=== PATIENT | female | born 1995 | race African-American/Black ===

== ENCOUNTER 2019-09-13 04:51 | Emergency (ER) | payer OTHER, SELFPAY ==
[2019-09-13 04:55] VITALS: BP 118/93; PULSE 97; RESP 20; TEMP 37.2; O2SAT 100
--- NOTE | 2019-09-13 06:37 | ED.GENADULT ---
HPI - General Adult General Chief complaint: Unspecified Stated complaint: iron deficiency? Time Seen by Provider: 09/13/19 06:05 History of Present Illness HPI narrative: She awoke from sleep early this morning feeling SOB, fatigued, heart racing, and tingling in her fingers. Her symptoms have since resolved. she drank an energy drink last night before bed which is out of the ordinary for her. She had a similar episode 2 days ago. She was concerned that she is concerned that she may be anemic because she likes to eat ice. She denies any recent illness, stressors. Related Data Home Medications Medication Instructions Recorded Confirmed No Home Medications 09/13/19 Allergies Allergy/AdvReac Type Severity Reaction Status Date / Time No Known Allergies Allergy Unverified 01/06/16 17:25 Review of Systems Review of Systems: All systems reviewed & are unremarkable except as noted in HPI and below Constitutional: Constitutional: Reports fatigue, Denies fever(s) and Reports weakness Eyes: Eyes: Denies change in vision ENT: Denies sore throat Cardiovascular: Cardiovascular: Denies chest pain and Reports rapid heart rate Respiratory: Respiratory: Denies cough, Reports dyspnea and Denies wheezing Gastrointestinal: Gastrointestinal: Denies abdominal pain and Denies nausea Genitourinary: Genitourinary: Denies dysuria Neurologic: Denies dizziness, Denies syncope, Reports numbness and Reports weakness Endocrine: Endocrine: Denies polydipsia and Denies polyuria Hematologic/Lymphatic: Hematologic/Lymphatic: Denies easy bleeding and Denies easy bruising [facility] Social History Social History (Updated 09/13/19 @ 06:46 by Juan Barnett MD) Smoking status: Never smoker Exam Const: General: no acute distress and alert Orientation/consciousness: patient oriented x3 HENMT: Head: normal to inspection Mouth: Yes dry mucous membranes Neck: Neck: normal visual inspection and no lymphadenopathy Resp: Effort & Inspection: normal respiratory effort Auscultation: clear to auscultation bilaterally, no rales, no rhonchi and no wheezes Cardio: Jugular venous distension: no JVD Rate: regular rate Rhythm: regular rhythm Heart sounds: no murmurs GI: Inspection: non-distended GI Palp: Yes Soft to palpation and No Tenderness to palpation present (GI) Skin: General skin exam: normal color Neuro: General: patient oriented x3, moves all extremities and no focal motor deficits Speech: normal speech Extrem: General: no edema Psych: Appearance: well kempt Affect: Anxious affect present Course Vital Signs Vital signs: Vital Signs Temperature 37.2 C 09/13/19 04:55 Pulse Rate 97 09/13/19 04:55 Respiratory Rate 20 09/13/19 04:55 Blood Pressure 118/93 H 09/13/19 04:55 Pulse Oximetry 100 09/13/19 04:55 Temperature 37.2 C 09/13/19 04:55 Pulse Rate 97 09/13/19 04:55 Respiratory Rate 20 09/13/19 04:55 Blood Pressure 118/93 H 09/13/19 04:55 Pulse Oximetry 100 09/13/19 04:55 Medical Decision Making MDM Narrative Medical decision making narrative: Presentation most consistent with anxiety. Will get labs to r/o anemia. She may also be mildly dehydrated. She is a good candidate for oral hydration. Medical Records Medical records reviewed: Yes I reviewed the patient's medical records. Vital Signs Vital Signs: Vital Signs Temperature 37.2 C 09/13/19 04:55 Pulse Rate 97 09/13/19 04:55 Respiratory Rate 20 09/13/19 04:55 Blood Pressure 118/93 H 09/13/19 04:55 Pulse Oximetry 100 09/13/19 04:55 Temperature 37.2 C 09/13/19 04:55 Pulse Rate 97 09/13/19 04:55 Respiratory Rate 20 09/13/19 04:55 Blood Pressure 118/93 H 09/13/19 04:55 Pulse Oximetry 100 09/13/19 04:55 Lab Data Lab results reviewed: Yes I reviewed the patient's lab results. Result diagrams: 09/13/19 06:29 09/13/19 06:29 Labs: Lab Results 09/13/1908/27
[2019-09-13 06:47] LABS: Basophils Percent Auto 0.5 % (0.2-1.2); Eosinophils Absolute Auto 0.1 K/mm3 (0-0.3); Eosinophils Percent Auto 1.4 % (0-4.4); Hematocrit 33.4 % (37.0-47.0); Hemoglobin 10.4 g/dL (12.0-15.0); Immature Granulocyte Absolute 0.02 K/mm3 (0.00-0.031); Immature Granulocyte Percent A 0.3 % (0-0.5); Lymphocytes Absolute Auto 2.76 K/mm3 (0.9-3.2); Lymphocytes Percent Auto 42.3 % (18.3-44.2); Mean Corpuscular HGB Conc 31.1 g/dl (32-36); Mean Corpuscular Hemoglobin 25.3 pg (26-34); Mean Corpuscular Volume 81.3 fl (80-100); Mean Platelet Volume 11.3 fl (7.4-10.4); Monocytes Absolute Auto 0.6 K/mm3 (0.1-0.6); Monocytes Percent Auto 9.2 % (2.6-8.5); Neutrophils Percent Auto 46.3 % (45.5-73.1); Platelet Count Result 279 k/mm3 (150-375); Red Blood Count 4.11 M/mm3 (4.2-5.4); Red Cell Distribution Width 15.3 % (11.5-14.5); White Blood Count 6.5 K/mm3 (4.5-10.0)
[2019-09-13 06:49] LABS: Blood Urea Nitrogen 12 mg/dL (7-17); Calcium 9.4 mg/dL (8.4-10.2); Carbon Dioxide 23 mmol/L (22-30); Chloride 106 mmol/L (98-107); Estimated CRCL calculation 98 ml/min; Estimated Glomerular Filt Rate > 60; Glucose 90 mg/dL (65-105); Potassium 3.3 mmol/L (3.4-5.0); Sodium 138 mmol/L (137-145)
== END 2019-09-13 06:27 | disposition home or self-care (01) ==
PROVIDERS: Emergency Provider Emergency Medicine
DX: F41.0 Panic disorder [episodic paroxysmal anxiety] (principal)
CPT/HCPCS: 36415; 80048; 81025; 85025; 99283

== ENCOUNTER 2021-02-14 22:39 | Emergency (ER) | payer OTHER, SELFPAY ==
--- NOTE | ~2021-02-14 | CT_ITS ---
EXAMINATION: CT abdomen pelvis w con DATE: 02/15/2021 01:47 INDICATION: Right lower abdominal pain TECHNIQUE: Computed tomography (CT) of the abdomen and pelvis was performed with 100 cc Omnipaque 350 intravenous contrast. The dose-length product was 214.75 mGy-cm. Automated exposure control and iter ative reconstruction technique were employed. COMPARISON: None. FINDINGS: Lung bases are unremarkable. Heart size normal. No significant pleural or pericardial effus ion. Gallbladder is present. The liver, spleen pancreas, adrenal glands and kidneys are unremarkable. No hydronephrosis. Gallbladder is contracted. Nonobstructive bowel gas pattern. Trace free fluid in the pelvis. No free air. No acute osseous abnormality. Bladder is underdistended for evaluation. Mild dextroscoliosis. IMPRESSION: 1. No acute abdominal abnormality. Reviewed, dictated and finalized at location A.
[2021-02-14 22:41] VITALS: BP 108/71; PULSE 89; RESP 16; TEMP 36.5; O2SAT 100
[2021-02-14 23:13] LABS: Add Urine Microscopic? YES; Appearance Urine Cloudy (Clear); Bacteria Urine Trace /hpf; Bilirubin Urine Negative (Negative); Blood Urine Negative (Negative); Color Urine Yellow (Yellow); Glucose Urine UA Negative (Negative); Ketones Urine Negative (Negative); Leukocyte Esterase Ur 3+ LEU/UL (Negative); Mucus Urine Rare /lpf; Nitrate Urine Negative (Negative); Protein Urine Negative (Negative); RBC Urine 0-2 /hpf (0-2); Specific Grav Ur 1.017 (1.001-1.035); Squamous Epithelial Cell Urine Many /hpf (Few)
[2021-02-14 23:50] VITALS: BP 107/75; PULSE 75; RESP 16; O2SAT 100
--- NOTE | 2021-02-15 00:11 | ED.FEMALEGU ---
HPI - Female Genitourinary General Chief complaint: Urogenital-Female <Marilyn Gottlieb MD - Last Filed: 02/16/21 07:02> Stated complaint: possible UTI <Marilyn Gottlieb MD - Last Filed: 02/16/21 07:02> Time Seen by Provider: 02/14/21 23:46 <Marilyn Gottlieb MD - Last Filed: 02/16/21 07:02> Source: patient <Marilyn Gottlieb MD - Last Filed: 02/16/21 07:02> Mode of arrival: ambulatory <Marilyn Gottlieb MD - Last Filed: 02/16/21 07:02> Limitations: no limitations <Marilyn Gottlieb MD - Last Filed: 02/16/21 07:02> History of Present Illness HPI Narrative: This is a 25 year old female who presents for evaluation of lower abdominal pain and lower back pain. She states 2 weeks ago she went to an urgent care for evaluation of lower abdominal pain and vaginal discharge. She was diagnosed with a UTI And she was discharged on antibiotics. She denies having pelvic exam or vaginal swabs taken. She reports her symptoms have not improved so she came to ER. She describes her lower abdominal pain as menstrual cramps and she had similar pain with ovarian cyst. She reports normal has pain resolves after 2 days. She denies nausea, vomiting or fever. She had some pain with urination. She has taken tylenol for her pain. Pain 310. <Marilyn Gottlieb MD - Last Filed: 02/16/21 07:02> Related Data Allergies/Adverse reactions: Allergies Allergy/AdvReac Type Severity Reaction Status Date / Time doxycycline Allergy Swelling Verified 02/14/21 22:45 of Lip/Tongue/Throat <Marilyn Gottlieb MD - Last Filed: 02/16/21 07:02> Review of Systems Review of Systems: All systems reviewed & are unremarkable except as noted in HPI and below <Marilyn Gottlieb MD - Last Filed: 02/16/21 07:02> PMFSH Past Medical History Medical History: Medical History (Updated 02/16/21 @ 00:00 by Background Damacy) Ovarian cyst <Marilyn Gottlieb MD - Last Filed: 02/16/21 07:02> Surgical History Surgical History: Surgical History (Updated 02/15/21 @ 00:15 by Marilyn Gottlieb MD) No pertinent past surgical history <Marilyn Gottlieb MD - Last Filed: 02/16/21 07:02> Social History Social History: Social History (Updated 09/13/19 @ 06:46 by Juan Barnett MD) Smoking status: Never smoker <Marilyn Gottlieb MD - Last Filed: 02/16/21 07:02> Exam Const: General: no acute distress and alert <Marilyn Gottlieb MD - Last Filed: 02/16/21 07:02> Orientation/consciousness: patient oriented x3 <Marilyn Gottlieb MD - Last Filed: 02/16/21 07:02> Eyes: EOM: EOMs intact bilaterally <Marilyn Gottlieb MD - Last Filed: 02/16/21 07:02> Resp: Effort & Inspection: normal respiratory effort and no retractions <Marilyn Gottlieb MD - Last Filed: 02/16/21 07:02> Auscultation: clear to auscultation bilaterally <Marilyn Gottlieb MD - Last Filed: 02/16/21 07:02> Cardio: Rate: regular rate <Marilyn Gottlieb MD - Last Filed: 02/16/21 07:02> Rhythm: regular rhythm <Marilyn Gottlieb MD - Last Filed: 02/16/21 07:02> Heart sounds: no murmurs <Marilyn Gottlieb MD - Last Filed: 02/16/21 07:02> GI: GI Palp: Yes Soft to palpation, Yes Tenderness to palpation present (GI) (bilateral lower quadrant and suprapubic, pain worse in right lower ), No Guarding due to palpation present (GI) and No Rigid due to palpation <Marilyn Gottlieb MD - Last Filed: 02/16/21 07:02> Auscultation: normal bowel sounds <Marilyn Gottlieb MD - Last Filed: 02/16/21 07:02> : General: Yes no CVA tenderness <Marilyn Gottlieb MD - Last Filed: 02/16/21 07:02> Speculum Exam - Vagina: abnormal vaginal discharge yellow <Marilyn Gottlieb MD - Last Filed: 02/16/21 07:02> Speculum Exam - Cervix: Cervical os closed <Marilyn Gottlieb MD - Last Filed: 02/16/21 07:02> Bimanual exam- vagina & uterus: cervical motion tenderness <Marilyn Gottlieb MD - Last Filed: 02/16/21 07:02> Skin: General
[2021-02-15 00:25] LABS: Basophils Percent Auto 0.2 % (0.2-1.2); Eosinophils Absolute Auto 0.1 K/mm3 (0-0.3); Eosinophils Percent Auto 1.8 % (0-4.4); Hematocrit 39.1 % (37.0-47.0); Hemoglobin 12.7 g/dL (12.0-15.0); Immature Granulocyte Absolute 0.01 K/mm3 (0.00-0.031); Immature Granulocyte Percent A 0.2 % (0-0.5); Lymphocytes Absolute Auto 3.14 K/mm3 (0.9-3.2); Lymphocytes Percent Auto 47.5 % (18.3-44.2); Mean Corpuscular HGB Conc 32.5 g/dl (32-36); Mean Corpuscular Hemoglobin 29.9 pg (26-34); Mean Platelet Volume 10.9 fl (7.4-10.4); Monocytes Absolute Auto 0.6 K/mm3 (0.1-0.6); Monocytes Percent Auto 8.8 % (2.6-8.5); Neutrophils Absolute Auto 2.8 K/mm3 (1.3-6.7); Neutrophils Percent Auto 41.5 % (45.5-73.1); Platelet Count Result 224 k/mm3 (150-375); Red Blood Count 4.25 M/mm3 (4.2-5.4); Red Cell Distribution Width 13.7 % (11.5-14.5); White Blood Count 6.6 K/mm3 (4.5-10.0)
[2021-02-15 00:35] LABS: Alanine Aminotransferase 12 U/L (4-35); Albumin Level 4.7 g/dL (3.5-5.1); Alkaline Phosphatase 119 U/L (38-126); Anion Gap 10 mmol/L (8-16); Aspartate Amino Transferase 24 U/L (14-36); Bilirubin,Total 0.4 mg/dL (0.2-1.3); Blood Urea Nitrogen 7 mg/dL (7-17); Calcium 9.9 mg/dL (8.4-10.2); Carbon Dioxide 25 mmol/L (22-30); Chloride 100 mmol/L (98-107); Estimated CRCL calculation 117 ml/min; Estimated Glomerular Filt Rate > 60; Glucose 88 mg/dL (65-110); Potassium 3.9 mmol/L (3.4-5.0); Sodium 135 mmol/L (137-145)
[2021-02-15] MEDS: KETOROLAC 30 MG/ML VIAL (*BKC) IV PUSH (01:02)
[2021-02-15] MEDS: cefTRIAXone 1 GM VIAL 0.5 GM IM (01:03)
[2021-02-15 01:10] VITALS: BP 108/72; PULSE 76; RESP 16; O2SAT 100
[2021-02-15] MEDS: LIDO 2%/EPINEPHRINE 1:100,000 20 ML VIAL (01:14)
[2021-02-15 02:28] VITALS: BP 116/82; PULSE 77; RESP 16; O2SAT 98
[2021-02-15 03:28] VITALS: BP 105/73; PULSE 81; RESP 15; O2SAT 100
[2021-02-15] MEDS: AZITHROMYCIN 250 MG TABLET 1000 MG PO (03:29)
== END 2021-02-15 03:46 | disposition home or self-care (01) ==
PROVIDERS: General Practice; Emergency Provider Emergency Medicine
DX: N73.0 Acute parametritis and pelvic cellulitis (principal); N39.0 Urinary tract infection, site not specified
CPT/HCPCS: 36415; 74177; 80053; 81001; 81025; 85025; 87070; 87086; 87491; 87591; 87808; 96372; 96374; 99284; A9270; J0696; J1885; Q9967

== ENCOUNTER 2021-03-09 00:26 | Emergency (ER) | payer OTHER, SELFPAY ==
[2021-03-09 00:32] VITALS: BP 122/75; PULSE 75; RESP 18; TEMP 36.3; O2SAT 100
[2021-03-09 00:43] VITALS: BP 119/86; PULSE 94; RESP 14; O2SAT 100
[2021-03-09 01:23] LABS: Add Urine Microscopic? YES; Appearance Urine Cloudy (Clear); Bacteria Urine Trace /hpf; Bilirubin Urine Negative (Negative); Blood Urine Negative (Negative); Color Urine Yellow (Yellow); Glucose Urine UA Negative (Negative); Ketones Urine Negative (Negative); Leukocyte Esterase Ur 1+ LEU/UL (Negative); Nitrate Urine Negative (Negative); Protein Urine Negative (Negative); RBC Urine 0-2 /hpf (0-2); Specific Grav Ur 1.012 (1.001-1.035); Squamous Epithelial Cell Urine Many /hpf (Few); Urobilinogen Urine Negative mg/dL (<2.0)
--- NOTE | 2021-03-09 01:28 | ED.GENADULT ---
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 Patient was seen in the emergency department about 2 weeks ago and treated for pelvic inflammatory disease. The patient has history of allergy to doxycycline and was treated with 2 doses of azithromycin and a dose of ceftriaxone and an antibiotic for her UTI. Patient reports that she started her menses and reports that her symptoms worsened. Related Data Allergies Allergy/AdvReac Type Severity Reaction Status Date / Time doxycycline Allergy Swelling Verified 03/09/21 00:35 of Lip/Tongue/Throat Review of Systems Review of Systems: A 10 system review of systems was completed on the patient and is negative except for what is stated in the HPI. Nursing and ancillary documentation was reviewed. PMFSH Past Medical History Medical History Ovarian cyst Surgical History Surgical History No pertinent past surgical history Social History Social History Smoking status: Never smoker Exam Narrative: GENERAL: Well-appearing, well-nourished, and in no acute distress. HEAD: Normocephalic, atraumatic. EYES: PERRLA and EOMI. ENT: Nares clear, no rhinorrhea or epistaxis. Mucous membranes moist. NECK: Supple. CHEST: Clear to auscultation. No respiratory distress. HEART: Regular rate and rhythm. No murmur heard. Normal peripheral pulses. ABDOMEN: Soft, nontender, nondistended, normal active bowel sounds. EXTREMITIES: Normal range of motion. No edema. SKIN: Warm, dry, no rash. NEURO: No focal deficits. Alert and oriented x3. PSYCH: Normal mood and affect. Course Vital Signs Vital signs: Vital Signs Temperature 36.3 C L 03/09/21 00:32 Pulse Rate 75 03/09/21 00:32 Respiratory Rate 18 03/09/21 00:32 Blood Pressure 122/75 03/09/21 00:32 Pulse Oximetry 100 03/09/21 00:32 Temperature 36.3 C L 03/09/21 00:32 Pulse Rate 94 03/09/21 00:43 Respiratory Rate 14 03/09/21 00:43 Blood Pressure 119/86 03/09/21 00:43 Pulse Oximetry 100 03/09/21 00:43 Medical Decision Making Vital Signs Vital Signs: Vital Signs Temperature 36.3 C L 03/09/21 00:32 Pulse Rate 75 03/09/21 00:32 Respiratory Rate 18 03/09/21 00:32 Blood Pressure 122/75 03/09/21 00:32 Pulse Oximetry 100 03/09/21 00:32 Temperature 36.3 C L 03/09/21 00:32 Pulse Rate 94 03/09/21 00:43 Respiratory Rate 14 03/09/21 00:43 Blood Pressure 119/86 03/09/21 00:43 Pulse Oximetry 100 03/09/21 00:43 Lab Data Labs: Lab Results 03/09/21 03/09/21 Range/Units 01:05 01:05 Urine Color Yellow (Yellow) Urine Appearance Cloudy H (Clear) Urine pH 6.0 (5.0-9.0) Ur Specific [place] 1.012 (1.001-1.035) Urine Protein Negative (Negative) mg/dL Urine Glucose (UA) Negative (Negative) mg/dL Urine Ketones Negative (Negative) mg/dL Ur Blood (Man) Negative (Negative) Urine Nitrate Negative (Negative) Urine Bilirubin Negative (Negative) Urine Urobilinogen Negative (<2.0) mg/dL Leukocyte Esterase Rfl 1+ H (Negative) [place]/UL Urine RBC 0-2 (0-2) /hpf Urine WBC 7-9 H /hpf Ur Squamous Epith Cells Many H (Few) /hpf Urine Bacteria Trace /hpf C.trachomatis RNA (TMA) Pending N.gonorrhoeae RNA (TMA) Pending G Bedside Result Negative Reference Range: Negative Discharge Plan Discharge Clinical Impression: Pelvic pain UTI (urinary tract infection) Qualifiers: Urinary tract infection type: acute cystitis Hematuria presence: without luis
[2021-03-09] MEDS: metroNIDAZOLE 250 MG TABLET 500 MG PO (02:00)
[2021-03-09] MEDS: AZITHROMYCIN 250 MG TABLET 1000 MG PO (02:00)
[2021-03-09] MEDS: cefTRIAXone 1 GM VIAL IM (02:02)
--- NOTE | 2021-03-09 02:05 | PC.NURSE ---
rocephin diluted with 2.1 ml lidocaine
[2021-03-09 02:17] VITALS: BP 117/70; PULSE 84; RESP 12; O2SAT 100
== END 2021-03-09 02:17 | disposition home or self-care (01) ==
PROVIDERS: Emergency Provider Emergency Medicine
DX: N30.00 Acute cystitis without hematuria (principal); R10.2 Pelvic and perineal pain
CPT/HCPCS: 81001; 81025; 87086; 87491; 87591; 96372; 99284; A9270; J0696

== ENCOUNTER 2024-02-06 09:57 | Emergency (ER) | payer OTHER, SELFPAY ==
[2024-02-06 10:09] VITALS: BP 111/73; PULSE 72; RESP 16; TEMP 36.8; O2SAT 100
--- NOTE | 2024-02-06 10:45 | ED.BACK ---
HPI - Back Pain/Injury General Chief Complaint: Back Pain/Injury Stated Complaint: back pain Time Seen by Provider: 02/06/24 10:17 History of Present Illness HPI Narrative: This is a 28-year-old female present to the emergency department after having a box fell onto her back while at work. 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 This occurred yesterday and since then she has been having some tightness in her upper back and radiating to her shoulders. She is able to move all her extremities and ambulate efficiently but states that her back pain was worsening they are not responsive to Tylenol at home. Denies any GI or complaints, no fever, chills, headache, vision change. She did not fall or lose consciousness. Previously in her normal state of health. Related Data Allergies Allergy/AdvReac Type Severity Reaction Status Date / Time doxycycline Allergy Swelling Verified 02/06/24 10:11 of Lip/Tongue/Throat sulfamethoxazole Allergy Swelling Verified 02/06/24 10:12 Review of Systems Review of Systems: As reviewed above in HPI [facility] Past Medical History Medical History HSV-1 infection 2018 Ovarian cyst Surgical History Surgical History History of gynecological procedure (01/29/17) tiago iud insertion History of gynecological procedure (11/08/18) tiago iud removal No pertinent past surgical history Social History Social History Smoking status: Never smoker Exam Narrative: GENERAL: [Well-appearing, well-nourished, and in no acute distress.] HEAD: [Normocephalic, atraumatic.] EYES: [PERRLA and EOMI.] ENT: Nares clear, no rhinorrhea or epistaxis. Mucous membranes moist. NECK: Supple. CHEST: [Clear to auscultation. No respiratory distress.] HEART: [Regular rate and rhythm]. No murmur heard. [Normal peripheral pulses.] ABDOMEN: [Soft, nondistended], [nontender], [No rigidity or guarding] EXTREMITIES: Normal range of motion. [No edema.] No CT or L-spine tenderness. No overlying skin changes in the upper back. Paraspinal muscle tenderness in the neck SKIN: Warm, dry, no rash. NEURO: [No focal deficits]. Alert and oriented [x3.] PSYCH: [Normal mood and affect.] Course Vital Signs Vital signs: Vital Signs Temperature 36.8 C 02/06/24 10:09 Pulse Rate 72 02/06/24 10:09 Respiratory Rate 16 02/06/24 10:09 Blood Pressure 111/73 02/06/24 10:09 Pulse Oximetry 100 02/06/24 10:09 Temperature 36.8 C 02/06/24 10:09 Pulse Rate 72 02/06/24 10:09 Respiratory Rate 16 02/06/24 10:09 Blood Pressure 111/73 02/06/24 10:09 Pulse Oximetry 100 02/06/24 10:09 MDM - Back Pain/Injury MDM Narrative Medical decision making narrative: This is a 28-year-old female sustaining a minor injury while at work. She had a box fell onto her upper back. She did not fall over lose consciousness and has no red flag symptoms or manifestations of her back aside for a tightness in her upper back muscles. Patient's examination is very reassuring and she has normal reassuring vital signs. At this time we will treat her symptomatically and she does not require any additional workup or imaging studies. She was given Toradol, Robaxin, Tylenol, lidocaine patch. Patient will be discharged with regular outpatient follow-up. Discharge Plan Discharge Clinical Impression: Back strain Patient Disposition: Home, Self-Care Condition: Stable Instructions: Antibiotic Form, Back Pain (ED) Additional Instructions: If you have any worsening signs or symptoms of your back pain feel free to return to the emergency department however you are safe for outpatient follow-up as needed and continue taking the or
[2024-02-06] MEDS: ACETAMINOPHEN 500 MG TABLET 1000 MG PO (10:58)
[2024-02-06] MEDS: KETOROLAC 30 MG/ML VIAL (*BKC) 15 MG IM (10:59)
[2024-02-06] MEDS: LIDOCAINE 5% PATCH 1 PATCH TRANSDERM (11:00)
[2024-02-06] MEDS: methocarbamoL 500 MG TABLET PO (11:07)
[2024-02-06 11:14] VITALS: BP 110/72; PULSE 72; RESP 16; O2SAT 100
== END 2024-02-06 11:15 | disposition home or self-care (01) ==
PROVIDERS: Emergency Provider Student in an Organized Health Care Education/Training Program
DX: S39.012A Strain of muscle, fascia and tendon of lower back, initial encounter (principal); W19.XXXA Unspecified fall, initial encounter
CPT/HCPCS: 96372; 99283; A9270; J1885